=== PATIENT | female | born 1965 | race Two or more races ===

== ENCOUNTER 2023-05-10 06:02 | Day surgery (SDC) | payer OTHER ==
[~2023-05-10 06:02] MED LIST: ALLEGRA ALLERG180 MG PO; DECADRON PO; ZYRTEC10 M3 PO
== END 2023-05-10 16:55 | disposition home or self-care (01) ==
LOC: CIR.AMB 06:02
PROVIDERS: ATTEND Colon & Rectal Surgery
DX: N81.6 Rectocele (principal); K64.8 Other hemorrhoids; Z88.2 Allergy status to sulfonamides; Z20.822 Contact with and (suspected) exposure to COVID-19